=== PATIENT | male | born 1950 | race Caucasian/White ===

== ENCOUNTER → 2019-06-01 | Outpatient (CLI) | payer MEDICARE, OTHER ==
[~2019-06-01] VITALS: Ht 185 cm; Wt 127.0 kg
[~2019-06-01] MED LIST: CATHETER FLUSH 10 ML SYR IV PRN; REGADENOSON 0.4 MG/5 ML SYR (LEXISCAN) IV ONE
[2019-06-01 11:45] VITALS: BP 182/109
[2019-06-01 11:59] VITALS: BP 160/82
--- NOTE | 2019-06-04 08:15 | STRESS TEST ---
DATE OF SERVICE: 06/01/2019 NUCLEAR MYOVIEW REPORT REFERRING PHYSICIAN: Dr. Love. In summary, the patient was injected with 10.52 mCi of technetium-99 Myoview and the resting images were obtained. Then after receiving Lexiscan, the patient was injected with a stress dose of 30.8 mCi of technetium-99 Myoview. Test supervised and followed by Dr. Love. The resting and stress images were reviewed and compared in the short axis, horizontal long axis, and vertical long axis views. Review of the images showed diaphragmatic attenuation with typical male pattern. No significant ischemia or infarction. SSS is 0. TID value 1.09. On the gated images, the left ventricle appeared to be normal size with normal contractility. Calculated ejection fraction 48%. CONCLUSION: 1. Typical male pattern with no ischemia or infarction on SPECT images. 2. Normal LV size and function, EF 48%. Job ID: [id number] DocumentID: [id number] Dictated Date: 06/04/2019 07:45:00 Business Economist Date: 06/04/2019 08:14:10 Dictated By: GUSTAVO STARK MD [facility]
== END ==
LOC: CARD 10:00
PROVIDERS: ATTEND Internal Medicine
DX: I25.10 Atherosclerotic heart disease of native coronary artery without angina pectoris (principal)
CPT/HCPCS: 78452; 93017

== ENCOUNTER → 2019-06-07 | Outpatient (CLI) | payer MEDICARE, OTHER ==
--- NOTE | 2019-06-07 15:22 | Diagnostic Imaging Report ---
PROCEDURE: US Bilateral lower extremity arterial. TECHNIQUE: Multiple real-time grayscale images are obtained through both lower extremity arterial systems with color Doppler imaging and color Doppler spectral analysis. INDICATION: Atherosclerotic disease. FINDINGS: Predominantly triphasic and biphasic waveforms throughout both lower extremity arterial systems are seen. Velocities are fairly symmetric bilaterally with the exception of some mild velocity elevation in the mid right SFA reaching 161 cm/s. There is some [id number] plaque at this location. No significant velocity elevation is seen. No occlusion is identified. There is blood flow at the ankles via the posterior tibial and dorsalis pedis arteries. IMPRESSION: There is moderate plaque in the mid right SFA. However, no high-grade stenosis or occlusion is identified in either lower extremity arterial system. Dictated by: Dictated on workstation # [id number]
== END ==
LOC: RAD 13:29
PROVIDERS: ATTEND Internal Medicine
DX: I70.201 Unspecified atherosclerosis of native arteries of extremities, right leg (principal); I25.10 Atherosclerotic heart disease of native coronary artery without angina pectoris
CPT/HCPCS: 93925

== ENCOUNTER → 2019-06-13 | Outpatient (CLI) | payer MEDICARE, OTHER ==
--- NOTE | 2019-06-13 11:04 | Diagnostic Imaging Report ---
EXAMINATION: Ultrasound renal artery Doppler bilateral. INDICATION: Hypertension. TECHNIQUE/COMPARISON: Spectral and color flow imaging of both kidneys and both renal arteries was performed. There are no prior studies available for comparison. 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 The right kidney measures 14.9 x 5.9 x 7.3 cm while the left kidney is estimated to be 7.1 x 3.3 x 3.4 cm. There is no obvious renal mass identified and there is no sign of hydronephrosis of either kidney. The renal cortices seem to be normal in thickness and echogenicity. The renal arteries are identified although the left renal artery is not well visualized. There is no evidence for a hemodynamically significant stenosis of either renal artery. The bladder was imaged during the course of the exam. The bladder is only partially filled and consequently not well evaluated. There is no obvious bladder abnormality evident. IMPRESSION: 1. There is a horseshoe kidney and both of the renal moieties appear to be in the right abdomen. There is no definite abnormality of the kidneys but CT of the abdomen and pelvis should be considered for a more sensitive evaluation of both kidneys. Also, if previous studies are available, they would be helpful for comparison. 2. There is no evidence for renal artery stenosis. 3. There is no obvious bladder abnormality identified. Dictated by: Dictated on workstation # [id number]
== END ==
LOC: RAD 08:16
PROVIDERS: ATTEND Internal Medicine
DX: Q63.1 Lobulated, fused and horseshoe kidney (principal); I10 Essential (primary) hypertension
CPT/HCPCS: 76770; 93975

== ENCOUNTER 2022-07-24 09:29 | Emergency (ER) | payer MEDICARE, OTHER ==
[~2022-07-24] VITALS: Ht 188 cm; Wt 127.0 kg
[2022-07-24] MEDS ORDERED: NS IV 1000 ML 1,000 ML IV SCH (10:00)
[2022-07-24] MEDS ORDERED: CEFEPIME INJECTION 2,000 MG in NS (IVPB) 50 ML IV ONE (10:00)
[2022-07-24] MEDS ORDERED: ACETAMINOPHEN 500 MG TAB (TYLENOL) PO PRN (10:00)
--- NOTE | 2022-07-24 10:06 | ED General ---
General Chief Complaint: Allergic Reaction Stated Complaint: ALLERGIC REACTION FACE/EYES/EARS SWELLING Source of Information: Patient, Family Exam Limitations: No Limitations History of Present Illness Date Seen by Provider: Jul 24, 2022 Time Seen by Provider: 09:33 Initial Comments 72-year-old male with past medical history of diabetes, hypertension, CAD with stenting, ISIS on CPAP coming in due to swelling in his ears and face. Tuesday, he used a new tape for his CPAP that he had used years ago. morning he noticed swelling and redness in the area where the tape was, now s lowly spreading to his ears with swelling and pain. Noticed a fever yesterday as well up to 102. No hearing loss, headache, neck stiffness, chest pain, shortness of breath, abdominal pain, nausea, vomiting, diarrhea, weakness, numbness, or any other concerns associated with it. Started a new medicine for his diabetes which is an injection weekly, last got it on Tuesday. Denies any issues around the injection site. Otherwise denying any other acute complaints. Allergies and Home Medications Allergies Coded Allergies: No Known Drug Allergies (Unverified , 06/01/19) Patient Home Medication List Home Medication List Reviewed: Yes Review of Systems Review of Systems Constitutional: fever EENTM: see HPI Respiratory: no symptoms reported Cardiovascular: no symptoms reported Gastrointestinal: no symptoms reported Genitourinary: no symptoms reported Musculoskeletal: no symptoms reported Skin: see HPI Psychiatric/Neurological: No Symptoms Reported Hematologic/Lymphatic: No Symptoms Reported Immunological/Allergic: no symptoms reported All Other Systems Reviewed Negative Unless Noted: Yes Past Ktwacrn-Hxvsid-Qencqa Hx Patient Social History Substance use?: No Past Medical History Surgeries: Yes Coronary Stent Physical Exam Vital Signs Vital Signs - First Documented 07/24/22 09:35 Temp 36.8 Pulse 100 Resp 18 B/P (MAP) 162/89 (113) Pulse Ox 94 O2 Delivery Room Air Capillary Refill : Height, Weight, BMI Height: '" Weight: lbs. oz. kg; 37.10 BMI Method: General Appearance: No Apparent Distress, WD/WN Eyes: Bilateral Eye Normal Inspection, Bilateral Eye PERRL, Bilateral Eye EOMI HEENT: PERRL/EOMI, TMs Normal, Pharynx Normal, Other (Erythema and edema to the bilateral ears, left greater than right, left ear with some drainage coming from the ear canal, some redness spreading across his forehead more so on the left, no trismus, normal voice, normal neck mobility, normal hearing, no tenderness over the mastoid ) Neck: Full Range of Motion, Normal Inspection, Non Tender, Supple Respiratory: Chest Non Tender, Lungs Clear, Normal Breath Sounds, No Accessory Muscle Use, No Respiratory Distress Cardiovascular: Regular Rate, Rhythm, No Edema, Normal Peripheral Pulses Gastrointestinal: Normal Bowel Sounds, Non Tender, Soft; No Guarding Back: Normal Inspection, No CVA Tenderness Extremity: Normal Capillary Refill, Normal Inspection, Normal Range of Motion, Non Tender, No Calf Tenderness, No Pedal Edema Neurologic/Psychiatric: Alert, No Motor/Sensory Deficits, Normal Mood/Affect Skin: Warm/Dry, Rash (Erythema to the face and ears) Lymphatic: No Adenopathy Focused Exam Lactate Level 07/24/22 10:12: Lactic Acid Level 1.13 Lactic Acid Level Laboratory Tests Test 07/24/22 10:12 Lactic Acid Level 1.13 MMOL/L (0.50-2.00) Progress/Results/Core Measures Suspected Sepsis SIRS Temperature: Pulse: Respiratory Rate: Laboratory Tests 07/24/22 09:55: White Blood Count 15.9H Blood Pressure / Mean: 07/24/22 10:12: Lactic Acid Level 1.13 Laboratory Tests 07/24/22 09:55: Creatinine 1.23, INR Comment 1.1, Platelet Count 202, Total Bilirubin 1.0 Results/Orders Lab Results Laboratory Tests Test 07/24/22 09:55 07/24/22 10:12 Range/Units White Blood Count 15.9 H 4.3-11.0 10^3/uL Red Blood Count 4.63 4.30-5.52 10^6/uL Hemoglobin 12.6 L 13.3-17.7 g/dL Hematocrit 38 L 40-54 % Mean Corpuscular Volume 82 80-99 fL Mean Corpuscular Hemoglobin 27 25-34 pg Mean Corpuscular Hemoglobin Concent 33 32-36 g/dL Red Cell Distribution Width 14.1 10.0-14.5 % Platelet Count 202 130-400 10^3/uL Mean Platelet Volume 9.1 9.0-12.2 fL Immature Granulocyte % (Auto) 1 % Neutrophils (%) (Auto) 90 H 42-75 % Lymphocytes (%) (Auto) 5 L 12-44 % Monocytes (%) (Auto) 4 0-12 % Eosinophils (%) (Auto) 0 0-10 % Basophils (%) (Auto) 0 0-10 % Neutrophils # (Auto) 14.4 H 1.8-7.8 10^3/uL Lymphocytes # (Auto) 0.8 L 1.0-4.0 10^3/uL Monocytes # (Auto) 0.6 0.0-1.0 10^3/uL Eosinophils # (Auto) 0.0 0.0-0.3 10^3/uL Basophils # (Auto) 0.0 0.0-0.1 10^3/uL Immature Granulocyte # (Auto) 0.1 0.0-0.1 10^3/uL Neutrophils % (Manual) 82 % Lymphocytes % (Manual) 4 % Monocytes % (Manual) 5 % Eosinophils % (Manual) 0 % Basophils % (Manual) 0 % Band Neutrophils 9 % Polychromasia SLIGHT Prothrombin Time 14.8 H 12.2-14.7 SEC INR Comment 1.1 0.8-1.4 Activated Partial Thromboplast Time 34 24-35 SEC Sodium Level 135 135-145 MMOL/L Potassium Level 3.6 3.6-5.0 MMOL/L Chloride Level 102 98-107 MMOL/L Carbon Dioxide Level 22 21-32 MMOL/L Anion Gap 11 5-14 MMOL/L Blood Urea Nitrogen 21 H 7-18 MG/DL Creatinine 1.23 0.60-1.30 MG/DL Estimat Glomerular Filtration Rate 63 BUN/Creatinine Ratio 17 Glucose Level 186 H 70-105 MG/DL Calcium Level 9.0 8.5-10.1 MG/DL Corrected Calcium 9.4 8.5-10.1 MG/DL Total Bilirubin 1.0 0.1-1.0 MG/DL Aspartate Amino Transf (AST/SGOT) 59 H 5-34 U/L Alanine Aminotransferase (ALT/SGPT) 60 H 0-55 U/L Alkaline Phosphatase 91 40-136 U/L Total Protein 6.7 6.4-8.2 GM/DL Albumin 3.5 3.2-4.5 GM/DL Lactic Acid Level 1.13 0.50-2.00 MMOL/L Influenza Type A (RT-PCR) Not Detected Not Detecte Influenza Type B (RT-PCR) Not Detected Not Detecte SARS-CoV-2 RNA (RT-PCR) Not Detected Not Detecte My Orders Orders - AMANDA CASTRO MD Influenza A And B By Pcr (07/24/22 09:54) Covid 19 Inhouse Test (07/24/22 09:54) Cbc With Automated Diff (07/24/22 09:54) Comprehensive Metabolic Panel (07/24/22 09:54) Blood Culture (07/24/22 09:54) Protime With Inr (07/24/22 09:54) Partial Thromboplastin Time (07/24/22 09:54) Acetaminophen Tablet (Tylenol Tablet) (07/24/22 10:00) Ed Iv/Invasive Line Start (07/24/22 09:54) Vital Signs Adult Sepsis Patie Q15M (07/24/22 09:54) O2 (07/24/22 09:54) Remove Rings In Anticipation O (07/24/22 09:54) Lactic Acid Analyzer (07/24/22 09:54) Ns Iv 1000 Ml (Sodium Chloride 0.9%) (07/24/22 10:00) Cefepime Injection (Maxipime Injection) (07/24/22 10:00) Manual Differential (07/24/22 09:55) Medications Given in ED Current Medications Medications Dose Ordered Sig/Lavinia Route Start Time Stop Time Status Last Admin Dose Admin Acetaminophen 1,000 mg ONCE PRN PO 07/24/22 10:00 07/24/22 10:29 DC 07/24/22 10:28 1,000 MG Cefepime HCl 2000 mg/Sodium Chloride 50 ml @ 100 mls/hr ONCE ONCE IV 07/24/22 10:00 07/24/22 10:29 DC 07/24/22 10:28 100 MLS/HR Vital Signs/I&O 07/24/22 09:35 Temp 36.8 Pulse 100 Resp 18 B/P (MAP) 162/89 (113) Pulse Ox 94 O2 Delivery Room Air Capillary Refill : Progress Note : Progress Note 72-year-old male with above history coming in due to redness and pain around his ears and face. ABCs were intact and vitals are stable on presentation. Physical exam with what appears to be otitis externa worse on the left with some overlying cellulitis that is mild across his face. Does not appear consistent with allergic reaction given its been going on for a couple days, has some systemic symptoms such as fever, and no other skin findings anywhere else. Given the otitis externa, will treat and cover for Pseudomonas with IV cefepime. He does have an elevated white blood cell count, but labs otherwise not concerning. Flu and COVID test negative. Given that the patient has normal heart rate, blood pressure is not concerning, and systemically does not appear ill at this time, I believe he is stable for outpatient management. We will treat him with Levaquin to continue to cover him for Pseudomonas. I discussed the risk versus benefits of Levaquin including Achilles rupture as well as aortic dissection. We believe the benefits outweigh the risk. I will have the patient follow-up with his PCP within the next week or so, sooner if not improving. Departure Impression Primary Impression: Otitis externa Qualified Codes: H60.313 - Diffuse otitis externa, bilateral Additional Impression: Cellulitis Qualified Codes: L03.211 - Cellulitis of face Disposition: HOME, SELF-CARE Condition: Stable Departure-Patient Inst. Decision time for Depature: 11:20 Referrals: TREY REYES MD (PCP/Family) Primary Care Physician Patient Instructions: Outer Ear Infection ED, Cellulitis (Skin Infection), Adult ED Add. Discharge Instructions: You do have an infection from your ears going across the skin in your face which is what the swelling, redness, fever, and pain are from. You will be on antibiotics for the next 10 days. You are due for the next dose this evening around dinnertime. Follow-up with your regular doctor within the next week for a skin check. Take daily pictures of your face and ears to help see if it is improving. Take Tylenol as needed for fever or pain. If things get worse, you develop worse fevers after 24 hours of antibiotics, or have any concerns then we want you to be evaluated in the ER again Scripts Levofloxacin (Levofloxacin) 750 Mg Tablet 750 MG PO DAILY for 10 Days, #10 TAB Prov: AMANDA CASTRO MD 07/24/22 AMANDA CASTRO MD Jul 24, 2022 10:06
[2022-07-24 10:08] LABS: BASOPHILS % (AUTO) 0 % (0-10); EOSINOPHILS % (AUTO) 0 % (0-10); HEMATOCRIT 38 % (40-54); HEMOGLOBIN 12.6 g/dL (13.3-17.7); LYMPHOCYTES # (AUTO) 0.8 10^3/uL (1.0-4.0); LYMPHOCYTES % (AUTO) 5 % (12-44); MEAN CORPUSCULAR HEMOGLOBIN 27 pg (25-34); MEAN CORPUSCULAR HGB CONC 33 g/dL (32-36); MEAN CORPUSCULAR VOLUME 82 fL (80-99); MEAN PLATELET VOLUME 9.1 fL (9.0-12.2); MONOCYTES # (AUTO) 0.6 10^3/uL (0.0-1.0); MONOCYTES % (AUTO) 4 % (0-12); NEUTROPHILS # (AUTO) 14.4 10^3/uL (1.8-7.8); NEUTROPHILS % (AUTO) 90 % (42-75); PLATELET COUNT 202 10^3/uL (130-400); WHITE BLOOD COUNT 15.9 10^3/uL (4.3-11.0)
[2022-07-24 10:15] LABS: ALBUMIN 3.5 GM/DL (3.2-4.5); POTASSIUM 3.6 MMOL/L (3.6-5.0)
[2022-07-24 10:17] LABS: TOTAL PROTEIN 6.7 GM/DL (6.4-8.2)
[2022-07-24 10:18] LABS: INR 1.1 (0.8-1.4); PROTHROMBIN TIME PATIENT 14.8 SEC (12.2-14.7)
[2022-07-24 10:21] LABS: CREATININE SERUM 1.23 MG/DL (0.60-1.30)
[2022-07-24 10:32] LABS: BAND NEUTROPHILS 9 %; BASOPHILS % (MANUAL) 0 %; EOSINOPHILS % (MANUAL) 0 %; LYMPHOCYTES % (MANUAL) 4 %; MONOCYTES % (MANUAL) 5 %; NEUTROPHILS % (MANUAL) 82 %; POLYCHROMASIA SLIGHT
[2022-07-24] MEDS ORDERED: LEVO750T PO (11:22)
[2022-07-24 11:32] VITALS: BP 152/72
== END 2022-07-24 12:03 | disposition home or self-care (01) ==
LOC: EDUNIT# 09:29 → ER 09:32
DX: H60.92 Unspecified otitis externa, left ear (principal); L03.211 Cellulitis of face; G47.33 Obstructive sleep apnea (adult) (pediatric); E11.9 Type 2 diabetes mellitus without complications; Z20.822 Contact with and (suspected) exposure to COVID-19; Z99.89 Dependence on other enabling machines and devices
CPT/HCPCS: 36415; 80053; 83605; 85007; 85027; 85610; 85730; 87040; 87636